=== PATIENT | male | born 1975 | race Caucasian/White ===

== ENCOUNTER 2017-03-24 10:00 | Emergency (ER) | payer OTHER ==
[~2017-03-24] VITALS: Ht 177.8 cm; Wt 106.6 kg
[2017-03-24] MEDS ORDERED: NAPROSYN500 MG PO (11:59)
[2017-03-24 12:23] VITALS: BP 148/89
== END 2017-03-24 12:24 | disposition home or self-care (01) ==
LOC: ER 10:00
DX: S91.012A Laceration without foreign body, left ankle, initial encounter (principal); F10.99 Alcohol use, unspecified with unspecified alcohol-induced disorder; W22.8XXA Striking against or struck by other objects, initial encounter; Y93.89 Activity, other specified; Y92.89 Other specified places as the place of occurrence of the external cause; Y99.8 Other external cause status

== ENCOUNTER 2017-04-05 17:15 | Emergency (ER) | payer OTHER ==
[~2017-04-05] VITALS: Ht 177.8 cm; Wt 106.6 kg
[~2017-04-05 17:15] MED LIST: NAPROSYN500 MG PO
[2017-04-05 17:18] VITALS: BP 144/97
== END 2017-04-05 17:41 | disposition home or self-care (01) ==
LOC: ER 17:15
DX: S81.812D Laceration without foreign body, left lower leg, subsequent encounter (principal); X58.XXXD Exposure to other specified factors, subsequent encounter; F10.99 Alcohol use, unspecified with unspecified alcohol-induced disorder

== ENCOUNTER 2019-04-15 09:21 | Emergency (ER) | payer OTHER ==
[~2019-04-15] VITALS: Ht 177.8 cm; Wt 99.8 kg
[2019-04-15] MEDS ORDERED: MOBIC15 MG PO (10:37)
[2019-04-15 11:02] VITALS: BP 141/81
== END 2019-04-15 11:02 | disposition home or self-care (01) ==
LOC: ER 09:21
DX: S83.8X1A Sprain of other specified parts of right knee, initial encounter (principal); W18.39XA Other fall on same level, initial encounter; Y93.89 Activity, other specified; Y92.89 Other specified places as the place of occurrence of the external cause; Y99.8 Other external cause status